=== PATIENT | male | born 1995 | race Two or more races ===

== ENCOUNTER 2018-04-06 07:25 | Day surgery (SDC) | payer OTHER ==
[2018-04-06] MEDS ORDERED: CEFAZOLIN 2 GM/D5W RTU 2 GM/50 ML RTUPB IV ONE (07:32)
[2018-04-06] MEDS ORDERED: SUCCINYLCHOLINE CHLORIDE INJ 200 MG/10 ML VIAL ONE (08:16)
[2018-04-06] MEDS ORDERED: BUPIVACAINE HCL 0.5 % INJ/PF 30 ML SDV ONE (10:13)
[2018-04-06] MEDS ORDERED: FENTANYL CITRATE INJ/PF 100 MCG/2 ML AMPUL ONE (10:28)
[2018-04-06] MEDS ORDERED: MIDAZOLAM 2 MG/2 ML INJ ONE (10:28)
[2018-04-06] MEDS ORDERED: DEXAMETHASONE SOD PHOSPHATE INJ 4 MG/1 ML VIAL ONE (10:28)
[2018-04-06] MEDS ORDERED: PROPOFOL INJ 200 MG/20 ML VIAL IV ONE (10:29)
[2018-04-06] MEDS ORDERED: ONDANSETRON HCL INJ/PF 4 MG/2 ML SDV ONE (10:29)
[2018-04-06] MEDS ORDERED: ACETAMINOPHEN 1,000 MG/100 ML RTUPB IV ONE (10:29)
[2018-04-06] MEDS ORDERED: HYDROMORPHONE HCL INJ/PF 2 MG/ML AMPULE ONE (10:29)
[2018-04-06] MEDS ORDERED: DIPHENHYDRAMINE HCL 50 MG/ML VIAL IV PRN (11:18)
[2018-04-06] MEDS ORDERED: MEPERIDINE HCL/PF INJ 25 MG/1 ML DISP.SYRIN IV PRN (11:18)
[2018-04-06] MEDS ORDERED: MORPHINE SULFATE 10 MG/ML INJ IV PRN (11:18)
[2018-04-06] MEDS ORDERED: FENTANYL CITRATE INJ/PF 100 MCG/2 ML AMPUL IV PRN ×3 (11:18)
[2018-04-06] MEDS ORDERED: PROMETHAZINE HCL INJ 25 MG/1 ML VIAL IV PRN (11:18)
[2018-04-06] MEDS: MORPHINE SULFATE 10 MG/ML INJ ONE ×2 (13:20→13:30)
[2018-04-06] MEDS ORDERED: OXYCODONE-ACETAMINOPHEN 5-325 MG TABLET PO PRN (13:26)
[2018-04-06] MEDS ORDERED: ONDANSETRON HCL 8 MG TABLET PO PRN (13:29)
[2018-04-06] MEDS: FENTANYL CITRATE INJ/PF 100 MCG/2 ML AMPUL ONE ×2 (13:31→13:37)
[2018-04-06] MEDS ORDERED: PROMETHAZINE HCL INJ 25 MG/1 ML VIAL ONE (13:33)
--- NOTE | 2018-04-06 13:36 | OPERATIVE REPORT E ---
Operative Report NAME: HARINI COTO : 1995 AGE: 22Y DATE OF SURGERY: 04/06/2018 ROOM: PREOPERATIVE DIAGNOSIS: LEFT SCAPHOID NONUNION. POSTOPERATIVE DIAGNOSIS: LEFT SCAPHOID NONUNION. OPERATION: 1. Left wrist correction scaphoid nonunion with autogenous distal radius bone graft. 2. Removal of hardware previously placed, mini [employer] screw. SURGEON: GENE RUEDA M.D. ANESTHESIA: General. BLOOD LOSS: Minimal. COMPLICATIONS: None. INDICATIONS: The patient is a 22-year-old [employer]. He previously underwent ORIF of his scaphoid by another surgeon. It went onto nonunion. DESCRIPTION OF PROCEDURE: Following the induction of a general anesthetic and administration of antibiotics, the patient was positioned supine on the operating room table. Bony prominences were padded. A tourniquet was placed proximally on the left arm, but not inflated. The left upper extremity was sterilely prepped with Chloraprep and draped in standard fashion. The arm was exsanguinated and tourniquet inflated to 100 mm by systolic pressure. We started the case with removal of hardware. A dorsal incision was made. A sharp incision through skin and blunt dissection for the subcutaneous tissue. The EPL tendon was mobilized and retracted. A small capsulotomy in the wrist was performed to visualize the prior entry hole for the dorsally placed screw by the other surgeon. Was found to be a mini [employer]utrak screw. Guidewire was placed with a mini screwdriver from [employer] was used and screw was easily removed. This wound was left open. We turned the wrist over and a volar approach to the scaphoid was preformed. Sharp incision through skin and blunt dissection of the subcutaneous tissue. FCR sheath was opened volarly and dorsally, FCR retracted. Pronator quadratus taken off of the radius for later bone graft. A capsulotomy made over the scaphoid. Scaphoid nonunion was found. She scaphoid was completely curetted out with curettes, rongeurs, and a 15 blade to remove all necrotic bone. A autogenous bone graft in the distal radius was then harvested. Osteotome was used to get a cortical cancellous bone graft. Curettes were used to obtain a significant amount of cancellous bone graft. In addition, the cancellous bone graft was impacted proximally and distally within the scaphoid. The corticoid cancellous bone graft was used on the volar aspect of the scaphoid to restore the alignment of the scaphoid. It had formed into a DISI deformity and this was corrected with the volar cortical cancellous bone graft. Image intensification was brought in which confirmed correction of the scaphoid alignment. Since we already had a dorsal approach, it was decided to place a dorsal screw to not cause additional violation of the STT joint. The guidewire was placed centrally within the scaphoid from dorsal to volar. It was checked with image intensification and was then over-reamed and a standard Acutrak screw was placed in the scaphoid, achieving excellent compression. The volar wound was irrigated. The capsulotomy was closed with 4-0 FiberWire suture. The remaining tissues were allowed to fall back into position. Subcutaneous tissue and skin were reapproximated with Monocryl. Dorsal capsulotomy was closed with FiberLoop suture as well. Subcutaneous tissue and skin were reapproximated with 3-0 Monocryl suture and Steri-Strips were applied to all wounds and 0.25% Marcaine was injected in all wounds for postoperative analgesia. A bulky sterile dressing a short-arm splint were applied. The patient tolerated the procedure well without complications, and was brought to the recovery room in stable condition. DICTATING PHYSICIAN: GENE RUEDA M.D. [id number] PHY#: [id number] ID: [id number] JOB#: [id number] ACCT: [id number] cc:GENE RUEDA M.D. >
[2018-04-06] MEDS ORDERED: LORAZEPAM INJ 2 MG/1 ML VIAL ONE (13:55)
--- NOTE | 2018-04-06 14:48 | RADIOLOGY REPORT (SQ) ---
EXAM DESCRIPTION: NO CHG FLUORO; WRIST LEFT 3 VIEWS COMPLETED DATE/TIME: 04/06/2018 2:24 pm REASON FOR STUDY: LEFT SCAPHOID CORRECTION ASST WITH FLUORO IN OR S62.022K DISP FX OF MID 3RD OF NA CHARLEY BONE OF L WRS, 7THK COMPARISON: None. FLUOROSCOPY TIME: 17 seconds 3 images saved to PACS. TECHNIQUE: Intra-operative images acquired during surgical procedure to evaluate progress. NUMBER OF IMAGES: 3 LIMITATIONS: None. FINDINGS: Selected images from screw fixation of scaphoid fracture. Alignment is anatomic. IMPRESSION: IMAGE(S) OBTAINED DURING PROCEDURE. COMMENT: Quality ID [id number]: Final reports for procedures using fluoroscopy that document radiation exp osure indices, or exposure time and number of fluorographic images (if radiation exposure indices are not available) Please consult full operative report of the attending physician for description of the procedure. TECHNICAL DOCUMENTATION: JOB ID: [id number] [email or web address]- All Rights Reserved Reading location - IP/workstation name: [email or web address]
--- NOTE | 2018-04-06 14:48 | RADIOLOGY REPORT (SQ) ---
EXAM DESCRIPTION: NO CHG FLUORO; WRIST LEFT 3 VIEWS COMPLETED DATE/TIME: 04/06/2018 2:24 pm REASON FOR STUDY: LEFT SCAPHOID CORRECTION ASST WITH FLUORO IN OR S62.022K DISP FX OF MID 3RD OF NA CHARLEY BONE OF L WRS, 7THK COMPARISON: None. FLUOROSCOPY TIME: 17 seconds 3 images saved to PACS. TECHNIQUE: Intra-operative images acquired during surgical procedure to evaluate progress. NUMBER OF IMAGES: 3 LIMITATIONS: None. FINDINGS: Selected images from screw fixation of scaphoid fracture. Alignment is anatomic. IMPRESSION: IMAGE(S) OBTAINED DURING PROCEDURE. COMMENT: Quality ID 145: Final reports for procedures using fluoroscopy that document radiation exp osure indices, or exposure time and number of fluorographic images (if radiation exposure indices are not available) Please consult full operative report of the attending physician for description of the procedure. TECHNICAL DOCUMENTATION: JOB ID: [id number] [employer]- All Rights Reserved Reading location - IP/workstation name: [email or web address]
[2018-04-06 17:16] VITALS: BP 121/72
== END 2018-04-06 15:30 | disposition home or self-care (01) ==
LOC: OROUT 07:25
PROVIDERS: ATTEND Orthopaedic Surgery
DX: S62.022K Displaced fracture of middle third of navicular [scaphoid] bone of left wrist, subsequent encounter for fracture with nonunion (principal); W19.XXXD Unspecified fall, subsequent encounter; Y93.A9 Activity, other involving cardiorespiratory exercise; Y99.1 Military activity; D57.3 Sickle-cell trait
CPT/HCPCS: 73110; 25440; C1713; C1769 ×2; J2250; J3490; J1100; J3010; J2270; J1170; J2060; J2550; J0330; J2405; J2704; J0690; J0131; 01830